=== PATIENT | male | born 1950 ===

== ENCOUNTER 2016-11-06 | Outpatient (CLI) | payer OTHER | END 2016-11-06 13:31 | disposition home or self-care (01) ==

== ENCOUNTER 2016-12-18 13:30 | Outpatient (CLI) | payer OTHER | END 2016-12-18 13:31 | disposition home or self-care (01) | DX: G20 Parkinson's disease (principal); R13.10 Dysphagia, unspecified; M79.642 Pain in left hand; M79.641 Pain in right hand; M79.632 Pain in left forearm; M79.631 Pain in right forearm; K59.00 Constipation, unspecified; G47.00 Insomnia, unspecified; R45.1 Restlessness and agitation; Z79.891 Long term (current) use of opiate analgesic; R32 Unspecified urinary incontinence; R53.1 Weakness; Z51.5 Encounter for palliative care; Z66 Do not resuscitate ==